=== PATIENT | male | born 1945 | race Caucasian/White ===

== ENCOUNTER → 2017-12-29 12:47 | Outpatient (CLI) | payer MEDICARE, OTHER, MEDICAID, SELFPAY ==
--- NOTE | 2017-12-29 12:52 | CT_ITS ---
STUDY: CT ABDOMEN AND PELVIS WITH CONTRAST REASON FOR EXAM: Male, 72 years old. Urinary frequency, incontinence. RADIATION DOSAGE (If Supplied By Facility): CTDIvol = ( 29.07 ) mGy, DLP = ( 1853.91 ) mGycm TECHNIQUE: Transaxial images were obtained from the dome of the diaphragm to the symphysis pubis without oral contrast. 100CC ml of Isovue 250 contrast was administered. Sagittal and coronal images were reconstructed. Individualized dose optimization techniques were used for this CT. COMPARISON: July 17, 2011. FINDINGS: Densely calcified left lower lobe lung nodule. The heart is not enlarged. Small to moderate-sized hiatal hernia. Normal liver. Normal gallbladder and extrahepatic biliary system. Normal spleen. Normal pancreas. Normal bilateral adrenal glands. Normal right kidney. Normal left kidney. Normal visualized stomach. Normal small intestine. Normal colon. The appendix is well visualized and appears normal. There is diffuse atherosclerotic calcification of the distal abdominal aorta, without a demonstrated aneurysm. Atherosclerotic calcification of the origins of the celiac axis, superior mesenteric artery and bilateral renal arteries. Bilateral common iliac stents. Normal inferior vena cava. Normal retroperitoneum. No intra-abdominal free air. Normal urinary bladder. Bladder is not well-distended. Prostate gland is not enlarged. Surgical clips in the right posterior mid pelvis. Postoperative changes of abdominal ventral hernia repair. Small ventral hernias, containing fat, the largest left parasagittal measuring 2.0 cm in transverse dimension unchanged in size, and now peripherally calcified. Normal osseous structures. CT/Abdomen/Pelvis WITH Contrast IMPRESSION: No acute findings in the abdomen or pelvis. Normal urinary bladder which is not well distended. Prostate gland is not enlarged. Small to moderate size hiatal hernia unchanged. Old granulomatous disease. Diffuse atherosclerotic calcification of the distal abdominal aorta and origins of major branch vessels. Bilateral common iliac arterial stents. No evidence of bowel obstruction. Normal appendix. Additional nonemergent findings as above. Electronically Signed: Eriberto Vasquez MD at 5:22 EDT , Service support ,
== END ==
PROVIDERS: Family Provider Internal Medicine; PCP Internal Medicine
DX: R35.0 Frequency of micturition (principal); R32 Unspecified urinary incontinence
CPT/HCPCS: 74177; Q9967

== ENCOUNTER 2018-02-15 17:33 | Emergency (ER) | payer MEDICARE, OTHER, MEDICAID, SELFPAY ==
[2018-02-15 17:35] VITALS: BP 135/62; PULSE 83; RESP 16; TEMP 36.8; O2SAT 97; BMI 38.5
--- NOTE | 2018-02-15 17:59 | ED.VISSUMM ---
- ER Visit Summary Date of Service: 02/15/18 Chief Complaint: the nurse made me come in History of Present Illness: The patient is a 72 M who has chronic left leg pain for 10 years. He has a history of sciatica. He has had a previous epidural injections. He states he had an epidural injection a couple of months ago and has had some increased numbness ever since that time. He has an electric wheelchair at his assisted living. He states that today he asked the nurse for assistance from his lazy boy chair to his electric wheelchair and per the patient they made me come here. We did not receive report from the facility. Per their documentation the patient had extreme pain and inability to move his left leg. The patient absolutely denies this. He states that he has mild pain currently but he states he really does not want to be here and does not believe he needs anything else. Patient did request that since I am here anyways can you check my right groin. He does have a rash and some irritation on that side. He states that he has nystatin powder at home which she is already using on the left side for similar rash and that he used it for the first time on the right side today. He denies weakness. He states that he fell 2 days ago but has been doing fine since that time. Physical Examination: Afebrile vitals essentially normal Moist mucous membranes Patient resting comfortably no distress Heart regular rate and rhythm Lungs are clear Abdomen soft Patient does have a moist erythematous rash at the right groin consistent with yeast intertrigo Patient has 5 out of 5 strength with dorsiflexion, plantarflexion, extensor hallucis longus bilaterally. His sensation is intact to light touch with the bilateral lower extremities although he reports this is decreased on the left which is chronic at least for several months. He has brisk capillary refill bilaterally with capillary refill less than 2 seconds. He has a negative logroll of the left hip and pelvis is stable on compression. Test Results: Not indicated Emergency Department Course and Treatment: The patient states that his symptoms are chronic and that he does not want any other workup intervention or treatment here. He states that he would like to just be discharged back to his assisted living. He was advised that he can use the nystatin powder on the right side as well as he did this morning. He understands that he is welcome to return at any point for reevaluation and return for any new or worsening symptoms. All questions answered bedside and the patient was discharged. Treatment Plan: [] Disposition: Discharge Impression: Chronic left leg pain Yeast intertrigo right groin This note was generated with [employer] dictation software. It may contain incorrect words, spelling, and punctuation that were not noted in review of the chart prior to signing ED Disposition - Plan for ED Patient: Chief Complaint: Lower Extremity Injury Referrals: Maria Bowers MD [Primary Care Provider] -
--- NOTE | 2018-02-15 18:04 | ED.DEP ---
ED Disposition - Plan for ED Patient: Chief Complaint: Lower Extremity Injury Instructions: ED Sciatica, ED Tinea Cruris General Referrals: Maria Bowers MD [Primary Care Provider] -
--- NOTE | 2018-02-15 18:07 | NURSING ---
PT STATES, THEY MADE ME COME HERE. IF I WOULDN'T HAVE COME HERE, THEY SAID THEY WOULD LEAVE ME IN THE CHAIR ALL NIGHT. PT STATES HE DOES FEEL SAFE AT LONG TERM. PT STATES HE IS NOT IN ANY PAIN NOW AND DOES NOT NEED ANY TREATMENT.
== END 2018-02-15 18:44 | disposition home or self-care (01) ==
PROVIDERS: Emergency Provider Emergency Medicine; Family Provider Internal Medicine; PCP Internal Medicine
DX: M79.605 Pain in left leg (principal); G89.29 Other chronic pain; L30.4 Erythema intertrigo; E11.9 Type 2 diabetes mellitus without complications; I10 Essential (primary) hypertension; Z72.0 Tobacco use; Z79.02 Long term (current) use of antithrombotics/antiplatelets; Z79.4 Long term (current) use of insulin; Z79.899 Other long term (current) drug therapy
CPT/HCPCS: 99284